=== PATIENT | female | born 1990 | race American Indian/Alaskan Native ===

== ENCOUNTER 2018-01-10 03:32 | Day surgery (SDC) | payer MEDICAID ==
[2018-01-10] MEDS ORDERED: Sodium Chloride 0.9% 1,000 ML IV ONE ×2 (03:44→04:27)
[2018-01-10] MEDS ORDERED: Morphine 2 MG/ML Syringe IVPUSH ONE (03:49)
[2018-01-10] MEDS ORDERED: Ondansetron 4 MG/2 ML SDV IV ONE ×3 (03:49→11:20)
[2018-01-10] MEDS ORDERED: Morphine 4 MG/ML Syringe IVPUSH ONE (04:02)
--- NOTE | 2018-01-10 04:05 | EDM.PDOC ---
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 2SAB. Bleeding started 1.5 hours ago. Has been bright red and gush when severe cramp comes. States US done 2 weeks ago in clinic noted just angie sak and was told not a viable . Last meal 7pm, smoker 1/2 ppd. Pelvic Pain Score (Numeric/FACES): 4 - Related Data Allergies Allergy/AdvReac Type Severity Reaction Status Date / Time No Known Allergies Allergy Verified 01/10/18 03:37 Home Meds: Home Meds Pnv No.95/Ferrous Fum/Folic AC [ Multivitamin Tablet] 1 each PO DAILY [History] Past Medical History - Past Health History Medical/Surgical History: Denies Medical/Surgical History Social & Family History - Tobacco Use Smoking Status *Q: Light Tobacco Smoker Years of Tobacco use: 0 Packs/Tins Daily: 0.1 - Alcohol Use Days Per Week of Alcohol Use: 0 - Recreational Drug Use Recreational Drug Use: No - Living Situation & Occupation Living situation: Reports: with Significant Other Occupation: Employed ED ROS GENERAL - Review of Systems Review Of Systems: ROS reveals no pertinent complaints other than HPI. ED EXAM - Physical Exam Exam: See Below Exam Limited By: No Limitations General Appearance: Alert, Anxious, Mild Distress, Obese Eye Exam: Bilateral Eye: EOMI Ears: Normal External Exam Nose: Normal Inspection Throat/Mouth: Normal Inspection, Normal Lips, Normal Voice Head: Atraumatic, Normocephalic Neck: Full Range of Motion Respiratory/Chest: No Respiratory Distress, Lungs Clear Cardiovascular: Normal Peripheral Pulses, Regular Rate, Rhythm, Tachycardia GI/Abdominal Exam: Normal Bowel Sounds, Soft, Tender (suprapubic) (Female) Exam: Vaginal Bleeding Back Exam: Full Range of Motion Extremities: Normal Inspection, Normal Range of Motion Neurological: Alert, Oriented, Normal Cognition Psychiatric: Anxious, Tearful Skin Exam: Warm, Dry, Intact, Pallor Course - Vital Signs Last Recorded V/S: Last Vital Signs Temp 97.4 F 03/15/18 03:45 Pulse 65 01/10/18 04:32 Resp 18 01/10/18 04:32 BP 123/76 01/10/18 04:32 Pulse Ox 97 01/10/18 04:32 - Orders/Labs/Meds Orders: Active Orders 24 hr Category Date Time Status Sodium Chloride 0.9% [Normal Saline] 1,000 ml Med 01/10/18 04:27 Active IV .BOLUS Medication Orders Sodium Chloride (Normal Saline) 1,000 mls @ 500 mls/hr IV .BOLUS ONE Stop: 01/10/18 06:26 Last Admin: 01/10/18 04:31 Dose: 500 mls/hr Labs: Laboratory Tests 01/10/18 01/10/18 01/10/18 Range/Units 03:48 03:48 03:48 WBC 14.9 H (5.0-10.0) 10^3/uL RBC 4.57 (4.2-5.4) 10^6/uL Hgb 13.5 D (12.0-16.0) g/dL Hct 39.0 (37.0-47.0) % MCV 85.3 (80-100) fL MCH 29.5 (27.0-34.0) pg MCHC 34.6 (33.0-35.0) g/dL Plt Count 359 (150-450) 10^3/uL Neut % (Auto) 62.6 (42.2-75.2) % Lymph % (Auto) 27.5 (20.5-50.1) % Metcalfe % (Auto) 7.7 (2-8) % Eos % (Auto) 2.0 (1.0-3.0) % Baso % (Auto) 0.2 (0.0-1.0) % PT 9.4 (9.0-12.0) SEC INR 0.9 (0.9-1.2) Sodium 135 (135-145) mmol/L Potassium 3.5 L (3.6-5.0) mmol/L Chloride 104 (101-111) mmol/L Carbon Dioxide 22.0 (21.0-31.0) mmol/L Anion Gap 12.5 BUN 18 (7-18) mg/dL Creatinine 0.8 (0.6-1.3) mg/dL Est Cr Clr Drug Dosing 115.97 mL/min Estimated GFR (MDRD) > 60 BUN/Creatinine Ratio 22.50 Glucose 105 (74-105) mg/dL Calcium 8.9 (8.4-10.2) mg/dl Total Bilirubin 0.5 (0.2-1.0) mg/dL AST 27 (10-42) IU/L ALT 25 (10-60) IU/L Alkaline Phosphatase 57 (42-121) IU/L Total Protein 6.9 (6.7-8.2) g/dl Albumin 3.9 (3.2-5.5) g/dl Globulin 3.0 Albumin/Globulin Ratio 1.30 Blood Type Gel Antibody Screen 01/10/18 Range/Units 03:48 WBC (5.0-10.0) 10^3/uL RBC (4.2-5.4) 10^6/uL Hgb (12.0-16.0) g/dL Hct (37.0-47.0) % MCV (80-100) fL MCH (27.0-34.0) pg MCHC (33.0-35.0) g/dL Plt Count (150-450) 10^3/uL Neut % (Auto) (42.2-75.2) % Lymph % (Auto) (20.5-50.1) % Metcalfe % (Auto) (2-8) % Eos % (Auto) (1.0-3.0) % Baso % (Auto) (0.0-1.0) % PT (9.0-12.0) SEC INR (0.9-1.2) Sodium (135-145) mmol/L Potassium (3.6-5.0) mmol/L Chloride (101-111) mmol/L Carbon Dioxide (21.0-31.0) mmol/L Anion Gap BUN (7-18) mg/dL Creatinine (0.6-1.3) mg/dL Est Cr Clr Drug Dosing mL/min Estimated GFR (MDRD) BUN/Creatinine Ratio Glucose (74-105) mg/dL Calcium (8.4-10.2) mg/dl Total Bilirubin (0.2-1.0) mg/dL AST (10-42) IU/L ALT (10-60) IU/L Alkaline Phosphatase (42-121) IU/L Total Protein (6.7-8.2) g/dl Albumin (3.2-5.5) g/dl Globulin Albumin/Globulin Ratio Blood Type O POSITIVE Gel Antibody Screen Negative Meds: Medications Generic Name Dose Route Start Last Admin Trade Name Fermín PRN Reason Stop Dose Admin Sodium Chloride 1,000 mls @ 500 mls/hr 01/10/18 04:27 01/10/18 04:31 Normal Saline IV 01/10/18 06:26 500 mls/hr .BOLUS ONE Administration Discontinued Medications Generic Name Dose Route Start Last Admin Trade Name Fermín PRN Reason Stop Dose Admin Sodium Chloride 1,000 mls @ 999 mls/hr 01/10/18 03:44 01/10/18 03:52 Normal Saline IV 01/10/18 04:44 999 mls/hr .BOLUS ONE Administration Morphine Sulfate 2 mg 01/10/18 03:49 01/10/18 03:55 Morphine IVPUSH 01/10/18 03:50 2 mg ONETIME ONE Administration Morphine Sulfate 4 mg 01/10/18 04:02 01/10/18 04:07 Morphine IVPUSH 01/10/18 04:03 4 mg ONETIME ONE Administration Ondansetron HCl 4 mg 01/10/18 03:49 01/10/18 03:52 Zofran IV 01/10/18 03:50 4 mg ONETIME ONE Administration - Re-Assessments/Exams Free Text/Narrative Re-Assessment/Exam: 01/10/18 04:09 Dr. Estrada notified of heavy vaginal bleeding. Plan for D&C. 01/10/18 04:18 Nauseated, No vomiting. Continues with heavy vaginal bright red bleeding 01/10/18 04:48 Chux changed, large clot and active flow with cramping Dr Russell here to see patient. Consent for D&C and consent for blood signed by patient. VSS. Departure - Departure Time of Disposition: 04:50 Disposition: Refer to Observation Condition: Fair Clinical Impression: Incomplete - Discharge Information Forms: ED Department Discharge - My Orders Last 24 Hours: My Active Orders 01/10/18 04:27 Sodium Chloride 0.9% [Normal Saline] 1,000 ml IV .BOLUS - Assessment/Plan Last 24 Hours: My Active Orders 01/10/18 04:27 Sodium Chloride 0.9% [Normal Saline] 1,000 ml IV .BOLUS
[2018-01-10 04:16] LABS: ANION GAP 12.5; CHLORIDE,CL 104 mmol/L (101-111); SODIUM,NA 135 mmol/L (135-145)
[2018-01-10] MEDS ORDERED: fentaNYL 100 MCG/2 ML SDV IV ONE (04:48)
[2018-01-10] MEDS ORDERED: Lactated Ringers 1,000 ML IV ONE (04:48)
[2018-01-10] MEDS ORDERED: Propofol 200 MG/20 ML SDV IV ONE (04:48)
[2018-01-10] MEDS ORDERED: Midazolam 1 MG/ML 2 ML SDV IV ONE (04:48)
[2018-01-10] MEDS ORDERED: Ketorolac 30 MG/ML SDV IVPUSH ONE ×2 (04:48→11:21)
[2018-01-10] MEDS ORDERED: Dexamethasone 4 MG/ML SDV IV ONE (04:48)
[2018-01-10] MEDS ORDERED: Lidocaine 2% 20 ML MDV INJECT ONE (04:48)
[2018-01-10] MEDS ORDERED: Oxytocin/Normal Saline 30 UNIT/500 ML BAG ONE (04:59)
[2018-01-10] MEDS ORDERED: Oxytocin/Normal Saline 30 UNIT/500 ML BAG IV SCH (05:15)
[2018-01-10] MEDS ORDERED: ceFAZolin 2 GM in Premix Bag 1 BAG IV ONE (06:46)
--- NOTE | 2018-01-10 08:07 | OR ---
DATE: 01/10/2018 PREOPERATIVE DISCUSSION: The patient has been followed by me recently in the clinic, and please see our recent [facility] records from approximately 10 to 12 days ago. The patient does have a history of missed or blighted ovum at approximately 8 weeks' gestation. She does come to the emergency room, and I am called at approximately 4:00 a.m. today because of her very heavy vaginal bleeding with large clots and abdominal cramping. The PA in the emergency room has thoroughly discussed her with me. Her pulse rate is 110. CBC was pending. Blood pressure was 138/88 range. Because of the heavy vaginal bleeding, it was decided that we would proceed with D and C in the near future, and I have come over and evaluated the patient in the emergency room. We did thoroughly discussed the goals and reasons for the D and C, and we also thoroughly discussed the possibilities of complications and adverse outcomes any time we go to the operating room. All of her questions have been thoroughly answered. We also discussed with her the other alternatives of waiting further and/or using Cytotec, which I do not recommend doing of course. As mentioned above, all of their questions were answered. The patient does give consent to the D and C with suction curettage procedure. PREOPERATIVE DIAGNOSIS: Missed or blighted ovum with heavy vaginal bleeding, clotting, and cramping. OPERATION PERFORMED: D and C with suction curettage. POSTOPERATIVE DIAGNOSIS: Missed or blighted ovum with heavy vaginal bleeding, clotting, and cramping. Pathology report pending. ANESTHESIA: General. ESTIMATED BLOOD LOSS: 250 mL. COMPLICATIONS: None. DESCRIPTION OF PROCEDURE: After the induction of general anesthesia, the patient was routinely prepped and draped in the dorsal lithotomy position. The pelvis was carefully inspected, and a large amount of blood was in the vaginal vault. The cervix was actually fully dilated with a large clot and large piece of products of conception tissue in the endocervical canal area. This was removed with the sponge forceps and submitted as part of the specimen of course. Now, the uterus was carefully sounded to approximately 10 cm. The uterus was in the mid to slightly anterior position. The cervix did not need further dilating as mentioned above. Now, the medium size sharp curette was carefully introduced, and the uterine cavity was very carefully and very systematically curetted paying careful attention to all aspects of the organ. A moderate amount of tissue was obtained, and all of this was submitted to the pathologist also. Now, because of the amount of tissue and because of her amount of bleeding, we did also proceed with suction curettage using a 10 mm straight suction curette. This was done very carefully and very thoroughly, and a slight amount of further tissue and a moderate amount of further blood was obtained of course. This tissue will be submitted to the pathologist also. Now, the uterine cavity was very gently and very carefully curetted 1 last time, and also, we were careful to not over curette this delicate organ. No further tissue was obtained. IV intraoperative Pitocin was now begun, and also, it should be mentioned that the patient did have prophylactic IV Ancef 2 g given preoperatively. The uterine bleeding did slow down and then stopped, and I also did vigorously massaged the uterine cavity. The pelvic exam had been done just before beginning the procedure of course, and at that time, the uterus felt about 8 to 9-week size and in the mid position, and there were no adnexal masses of course. All of the instruments were now removed from the D and C procedure. The sponge and instrument count were reported as correct. There was no further bleeding from the cervix or the vaginal cavity. Estimated blood loss was approximately 250 mL. The patient has remained stable at all times in the operating room, and she goes to recovery room in a very stable condition. We will also exchange cell phone numbers again as we have done before with this patient approximately 10 days ago, and she will be instructed to keep in close contact with me in the postoperative period if any questions or problems whatsoever. Those discharge instructions will be given to her of course at discharge. As mentioned above, the patient goes to recovery room now in a very stable condition. [facility] /[id number]
== END 2018-01-10 14:00 | disposition home or self-care (01) ==
LOC: DL.ED 03:32 → DL.SDS 04:47
PROVIDERS: ATTEND Obstetrics & Gynecology
DX: O02.1 Missed abortion (principal); F17.210 Nicotine dependence, cigarettes, uncomplicated; Z91.09 Other allergy status, other than to drugs and biological substances; Z79.899 Other long term (current) drug therapy
CPT/HCPCS: 36415; 59820; 80053; 85025; 85610; 86850; 86900; 86901; 96361; 96374; 96375; 99285; J0690; J1100; J1885; J2250; J2270; J2405; J2590; J2704; J3010; J7030; J7120

== ENCOUNTER 2019-02-16 01:06 | Inpatient (IN) | payer MEDICAID ==
[2019-02-16] MEDS: Lactated Ringers 1,000 ML IV SCH ×5 (01:26→21:50)
[2019-02-16] MEDS ORDERED: Citric Acid/Sodium Citrate Solution 30 ML Cup PO ONE (02:08)
[2019-02-16] MEDS ORDERED: Oxytocin/Normal Saline 60 UNIT/1,000 ML BAG ONE (02:12)
[2019-02-16] MEDS ORDERED: Oxytocin/Normal Saline 30 UNIT/500 ML BAG IV SCH (02:45)
[2019-02-16] MEDS ORDERED: Bupivacaine 0.5% 30 ML SDV ONE (04:08)
[2019-02-16] MEDS ORDERED: Acetaminophen 325 MG Tab PO PRN (05:20)
[2019-02-16] MEDS ORDERED: Misoprostol 400 MCG (4 X 100 MCG TAB) RECTAL PRN (05:20)
[2019-02-16] MEDS ORDERED: Naloxone 2 MG/2 ML Syringe IVPUSH PRN (05:20)
[2019-02-16] MEDS ORDERED: Hydrocortisone 2.5% Crm 30 GM Tube TOP PRN (05:20)
[2019-02-16] MEDS ORDERED: Sodium Chloride 0.9% 10 ML Syringe FLUSH PRN (05:20)
[2019-02-16] MEDS ORDERED: Carboprost Tromethamine 250 MCG/1 ML Amp IM ONE (05:20)
[2019-02-16] MEDS ORDERED: Aluminum Hydroxide/Magnesium Hydroxide/Simethicone Susp 30 ML Cup PO PRN (05:20)
[2019-02-16] MEDS ORDERED: Methylergonovine 0.2 MG/1 ML Amp IM PRN (05:20)
[2019-02-16] MEDS ORDERED: Zolpidem 5 MG Tab PO PRN (05:20)
[2019-02-16] MEDS ORDERED: diphenhydrAMINE 50 MG/ML SDV IM PRN (05:20)
[2019-02-16] MEDS ORDERED: Ondansetron 4 MG/2 ML SDV IV PRN (05:20)
[2019-02-16] MEDS ORDERED: Measles, Mumps & Rubella Vaccine 0.5 ML SDV SUBCUT ONE (05:20)
[2019-02-16] MEDS ORDERED: Tranexamic Acid 1,000 MG in Sodium Chloride 0.9% 100 ML IV PRN (05:20)
[2019-02-16] MEDS ORDERED: ePHEDrine 50 MG/ML SDV IVPUSH PRN (05:20)
[2019-02-16] MEDS: Docusate Sodium 100 MG Cap PO PRN (08:26)
[2019-02-16] MEDS: Prenatal Multivitamin with Calcium/Folic Acid/Iron Tab PO SCH (08:26)
[2019-02-16] MEDS: Simethicone 80 MG Tab.Chew PO PRN ×2 (08:26→12:29)
[2019-02-16] MEDS: Ketorolac 30 MG/ML SDV IVPUSH SCH ×3 (09:32→21:47)
--- NOTE | 2019-02-16 12:23 | OR ---
DATE: 02/16/2019 PREOPERATIVE DIAGNOSES: 4, para 0 patient at 38 weeks 2 days' gestation with breech presentation and active labor. The patient is also group B Streptococcus positive. OPERATIONS PERFORMED: Primary section, low transverse. POSTOPERATIVE DIAGNOSIS: Same as above. ANESTHESIA: Spinal. COMPLICATIONS: None. ESTIMATED BLOOD LOSS: 600 mL. DESCRIPTION: After the induction of satisfactory spinal or regional anesthesia and after the abdomen had been routinely prepped and draped in the usual fashion, a Pfannenstiel incision was made in the skin. The patient did receive 3 g of Ancef IV preprocedure. This incision was now carried down through the deeper layers, and now the rectus fascia was incised and extended bilaterally. The peritoneum was identified in the midline and carefully incised. Now, the uterus was inspected, and the lower uterine segment was exposed with the bladder blade. Using the Metzenbaum scissors, the bladder flap was developed with the use of sharp and blunt dissection. Now, a low transverse uterine incision was made and extended bilaterally with the bandage scissors. There had been meconium-stained fluid noted earlier when the patient came into the hospital of course. The baby was in a kendal breech presentation, and he was now very carefully and gently extracted from the uterine incision as a kendal breech presentation. The scores were 9 and 9, and the baby's weight was later reported as 6 pounds 14 ounces. A sample of cord blood was obtained. The placenta was manually delivered from the uterine cavity, and the uterine cavity was carefully wiped clean with a moist laparotomy sponge. The uterus was carefully exteriorized, and because of her extra corpulence, it was somewhat difficult to get good exposure even with the uterus exteriorized. The first layer of the uterus was closed with 0 Vicryl continuous interlocking sutures. A second Lembert imbricating suture also of 0 Vicryl was now placed on top of this. A small bleeder on the right side of the incision was now ligated with an interrupted suture. Also, there had been a large amount of adipose tissue and a large amount of omental tissue that previously was obstructing our view, and I did gently packed this off with a moist laparotomy sponge on the right side. Once again, it was somewhat difficult to get good retraction and good exposure because of the body habitus. The pelvic gutters were copiously irrigated with warm normal saline on each side and carefully suctioned dry. The tubes and ovaries had a normal appearance bilaterally as did the uterus. The uterus was carefully placed back into the pelvic cavity. There was some initial difficulty for a short period of time locating the laparotomy sponge that I had placed earlier, and then it was found in the right pelvic gutter area. Once again, a lot of adipose tissue and redundant omentum was often times obstructing view. The pelvis was again reinspected 2 more times, and the uterine incision was hemostatic. Now, the rectus fascia was closed with 0 Vicryl continuous suturing using a separate strand for the right and left sides of the incision respectively. The subcutaneous tissues were now irrigated and suctioned dry, and then because of the depth of the subcutaneous tissues, this layer was closed with 3-0 plain gut continuous suturing. It should be mentioned that earlier the parietal peritoneum and the bladder flap peritoneum nicely reapproximated on its own without suturing. The subcutaneous tissues were now infiltrated with 0.5% Marcaine for extra analgesic support. Babita were now applied to the skin. The needle, sponge, and instrument count was definitely reported as correct. Kwok catheter was draining clear urine at all times. The patient has tolerated the procedure well and went to the recovery room in good condition. [facility] /[id number]
--- NOTE | 2019-02-17 00:44 | PN ---
DATE: 02/16/2019 SUBJECTIVE: The patient is seen earlier this morning on rounds, she did have a fairly decent night's sleep or rest, and does have good pain control. She denies any complaints. She has had liquids earlier this morning as well. Her baby continues to do very well in the nursery. OBJECTIVE: Temperature was 98 degrees, 1 of her systolic blood pressures were in the 142 to 144 range and then others have been below that. Incidentally, the patient denies any headaches. Her uterine or incisional dressing is dry. The lochia flow is within normal limits. Her extremities revealed normal reflexic DTRs bilaterally and no ankle clonus. She does have a trace of edema and negative Homans sign. She does have good urinary output. ASSESSMENT: Stable postoperative course. PLAN: We will advance her diet and we have emphasized the importance of progressive ambulation to her and we have discussed this with her as well as with the nurses. We do encourage oral hydration as well. All of her questions have been answered. Please see our admission history and physical and operative report. [facility] /[id number]
[2019-02-17] MEDS: Acetaminophen/oxyCODONE 325-5 MG Tab PO PRN ×4 (04:33→21:55)
[2019-02-17] MEDS: Ibuprofen 800 MG Tab PO PRN ×2 (08:28→21:56)
[2019-02-17] MEDS: Prenatal Multivitamin with Calcium/Folic Acid/Iron Tab PO SCH (08:28)
[2019-02-17] MEDS: Docusate Sodium 100 MG Cap PO PRN ×2 (08:28→21:57)
--- NOTE | 2019-02-17 08:43 | HP ---
HISTORY OF PRESENT ILLNESS: This patient is a 28-year-old, 4, para [address] Diggs. She is currently at 38 weeks 2 days gestation with a working JESE of 02/28/2019. She did experience spontaneous rupture of membranes at about 12:30 this morning on 02/16/2019. She is known to be breech presentation by history and indeed ultrasound does confirm breech presentation at the present time. She is in active labor and is 5+ cm dilated. heart tones are category 1. She is positive for group B strep. It appears she denies other complications that she is aware of. She has been experiencing good movement. Her Epic records are reviewed. PAST MEDICAL HISTORY: She denies any knowledge of heart, lung, liver, or kidney disease. ALLERGIES: None known. MEDICATIONS: At present, ranitidine as well as vitamins daily. PREVIOUS SURGERY: None. FAMILY HISTORY: Noncontributory including no known anesthesia problems in other family members. SOCIAL HISTORY: She lives at [place]. Her , Niranjan, is with her today. She denies street drug usage and she is a nonsmoker. PHYSICAL EXAMINATION: Vital Signs: Admission vital signs are within normal limits. HEENT: The sclerae are nonicteric. Lungs: Clear to A. Heart: Regular rhythm without murmur. Abdomen: Gravid and heart tones are category 1. She is having active contractions about every 2-1/2 to 3 minutes. There is negative CVA tenderness bilaterally. Repeat vaginal exam as mentioned above, reveals her to be flat 5+ cm dilated with what appears to possibly be a kendal breech at about 0 station. Extremities: Her extremities reveal trace ankle edema bilaterally. IMPRESSION: A 38 weeks 2 days' gestation. The patient has ruptured membranes with breech presentation and is in active labor. She also is GBS positive. We will discuss her with Anesthesia as well as the pediatric crew. We did highly recommend a course proceeding with primary section. We did thoroughly discuss with her the slight possibility of complications and adverse outcomes from this operative procedure. She does give consent to blood transfusion if necessary. Please see our other preoperative orders. We will proceed with primary section, low transverse. [facility] /[id number]
[2019-02-17] MEDS ORDERED: Sodium Bicarbonate 4.2% 2.5 MEQ/5 ML SDV ONE (11:29)
[2019-02-17] MEDS ORDERED: Lidocaine 2% 20 ML MDV ONE (11:29)
[2019-02-17] MEDS ORDERED: Ondansetron 4 MG/2 ML SDV IV ONE (11:29)
[2019-02-17] MEDS ORDERED: Oxytocin/Normal Saline 30 UNIT/500 ML BAG IV ONE (11:29)
[2019-02-17] MEDS ORDERED: Lactated Ringers 1,000 ML IV ONE (11:29)
[2019-02-17] MEDS ORDERED: ePHEDrine 50 MG/ML SDV IV ONE (11:29)
[2019-02-17] MEDS ORDERED: Ketorolac 30 MG/ML SDV IVPUSH ONE (11:29)
[2019-02-17] MEDS ORDERED: Bupivacaine 0.5% 30 ML SDV ONE (11:29)
[2019-02-17] MEDS ORDERED: Morphine PF 1 MG/ML Amp ONE (11:29)
[2019-02-17] MEDS ORDERED: Dexamethasone 4 MG/ML SDV IV ONE (11:29)
--- NOTE | 2019-02-17 15:58 | PCM.SN ---
- Free Text/Narrative Note: Postoperative Day #1 Progress Note S: The patient reports that she is doing well overall. She is ambulating well. Her pain is well controlled and reports that her bleeding is minimal. She is tolerating her diet without issue. She is passing flatus. She is with some difficulty with latching. No nausea, vomiting, diarrhea, shortness of breath, or other complaints. O: Physical exam: Vitals stable Gen: No distress CV: Well-perfused, 2+ distal pulses Resp: Non-Labored, symmetrical chest expansion Abd: Incision is clean, dry, and intact. Fundus is firm and below umbilicus. Ext: Moves all extremities. Assessment: Sofia is a 28 year old G3 now P1 status post primary for breech presentation (POD#1) who is doing well. Plan: - Encourage ambulation. - Dressing was removed; will allow to shower. - Advance diet - Routine Nursing. Shirin Diggs MD
[2019-02-17] MEDS: Simethicone 80 MG Tab.Chew PO PRN (21:57)
[2019-02-18] MEDS: Acetaminophen/oxyCODONE 325-5 MG Tab PO PRN ×4 (03:40→18:12)
[2019-02-18] MEDS: Simethicone 80 MG Tab.Chew PO PRN ×2 (08:58→16:58)
[2019-02-18] MEDS: Prenatal Multivitamin with Calcium/Folic Acid/Iron Tab PO SCH (08:59)
[2019-02-18] MEDS: Docusate Sodium 100 MG Cap PO PRN ×2 (08:59→21:09)
--- NOTE | 2019-02-18 10:37 | PCM.SN ---
- Free Text/Narrative Note: Postoperative Day #2 Progress Note S: The patient reports she is doing well. Ambulating without assistance, tolerating PO intake. She is passing flatus. Pain and bleeding are minimal. No nausea, vomiting, diarrhea, shortness of breath, or other complaints. O: Physical exam: Vitals reviewed and stable Gen: No distress CV: Well-perfused, 2+ distal pulses Resp: Non-labored, symmetrical chest expansion Abd: Incision is clean, dry, and intact. Fundus is firm and below umbilicus. Ext: Moves all extremities. Labs: reviewed Assessment: Sofia is a 28 year old G3 now P1 status post primary for breech presentation (POD#2) who is doing well. Plan: - Continue routine nursing for now. - Encourage ambulation. - Likely discharge home tomorrow. Shirin Diggs MD
[2019-02-18] MEDS: Ibuprofen 800 MG Tab PO PRN (21:09)
[2019-02-19] MEDS: Acetaminophen/oxyCODONE 325-5 MG Tab PO PRN ×2 (00:47→07:31)
[2019-02-19] MEDS: Simethicone 80 MG Tab.Chew PO PRN (00:47)
--- NOTE | 2019-02-19 08:44 | PCM.SN ---
- Free Text/Narrative Note: Discharge Summary Admit date: 02/16/19 Discharge date: 02/19/19 Delivering Physician: Dr. Estrada Discharging Physician: Dr. Diggs Admission Diagnoses: at 38w2d SROM at term Breech presentation Summary of Hospital Course: Sofia is a 28 year old G3 now P1 at 38w2d who presented to labor and delivery on 02/16/19 for SROM and was found to still be in breech presentation. She underwent primary low transverse section and delivered a viable male weighing 3110 grams. The patient had an unremarkable postoperative course. By postoperative day 3, the patient was doing well; ambulating, voiding , and tolerating general diet. Her pain was well controlled with oral pain medications, and was she was discharged to home. Discharge Exam: Vitals stable Gen: No distress CV: Well-perfused, 2+ distal pulses Resp: Non-Labored, symmetrical chest expansion Abd: Incision is clean, dry, and intact. Fundus is firm and below umbilicus. Ext: Moves all extremities. Discharge (or Final) Diagnoses: 1. Intrauterine at 38w2d 2. Primary low transverse section 3. Breech presentation Discharge Details: Admission Condition: good Discharged Condition: good Disposition: Home Discharge Medications: Percocet Diet: regular diet Activity: no heavy lifting for 2 weeks, pelvic rest for 6 weeks. Follow-up with Dr Diggs in 3 days for incision check and staple removal, then again in 6-8 weeks for visit. Shirin Diggs MD
[2019-02-19] MEDS: Prenatal Multivitamin with Calcium/Folic Acid/Iron Tab PO SCH (09:20)
[2019-02-19] MEDS: Docusate Sodium 100 MG Cap PO PRN (09:20)
== END 2019-02-19 12:50 | disposition home or self-care (01) | DRG 788 ==
LOC: DL.OBCHECK 01:06 → DL.MS 02:18 → OBSVTOIN 03:17
PROVIDERS: ADMIT Obstetrics & Gynecology; ATTEND Obstetrics & Gynecology
PROC: 10D00Z1 Extraction of Products of Conception, Low, Open Approach (ICD-10-PCS; principal; 2019-02-16)
DX: O32.1XX0 Maternal care for breech presentation, not applicable or unspecified (principal); O99.824 Streptococcus B carrier state complicating childbirth; Z3A.38 38 weeks gestation of pregnancy; Z37.0 Single live birth; Z23 Encounter for immunization
CPT/HCPCS: 36415; 76815; 83986; 85027; 86850; 86900; 86901; 90707; A9270-GY; J0690; J1100; J1885; J2001; J2274; J2405; J2590; J3490; J7120

== ENCOUNTER 2020-03-18 00:58 | Emergency (ER) | payer MEDICAID ==
[2020-03-18 02:31] LABS: ANION GAP 13.5 mEq/L (7-13); CHLORIDE,CL 102 mmol/L (98-107); SODIUM,NA 138 mmol/L (136-145)
--- NOTE | 2020-03-18 03:21 | EDM.PDOC ---
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 CRAMPING AND BLEEDING Time Seen by Provider: 03/18/20 01:50 Source of Information: Reports: Patient, RN History Limitations: Reports: No Limitations - History of Present Illness INITIAL COMMENTS - FREE TEXT/NARRATIVE: ED with report of cramping since afternoon and light sooting dark blood for one week and around 10pm started with bright blood with wiping. notes only around dime size area on liner all day long. Estimates 5-6 weeks . No fever or chills. No odor or other discharge. . Abdomen Pain Score (Numeric/FACES): 4 - Related Data Allergies Allergy/AdvReac Type Severity Reaction Status Date / Time adhesive tape Allergy Rash Verified 03/18/20 23:09 Home Meds: Home Meds Pnv No.95/Ferrous Fum/Folic AC [ Multivitamin Tablet] 1 each PO DAILY [History] Past Medical History - Past Health History Medical/Surgical History: Denies Medical/Surgical History HEENT History: Reports: Impaired Vision Cardiovascular History: Reports: None Respiratory History: Reports: None Gastrointestinal History: Reports: None Genitourinary History: Reports: Other (See Below) Other Genitourinary History: abnormal pap with Neg HPV 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: , 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 Musculoskeletal History: Reports: Back Pain, Chronic Neurological History: Reports: None Psychiatric History: Reports: None Endocrine/Metabolic History: Reports: Diabetes, Gestational, Other (See Below) Other Endocrine/Metabolic History: diet controlled gestational diabetes Hematologic History: Reports: None Immunologic History: Reports: None Oncologic (Cancer) History: Reports: None Dermatologic History: Reports: None - Infectious Disease History Infectious Disease History: Reports: Chicken Pox Social & Family History - Family History Family Medical History: Noncontributory - Tobacco Use Smoking Status *Q: Unknown Ever Smoked - Caffeine Use Caffeine Use: Reports: None - Recreational Drug Use Recreational Drug Use: Yes Recreational Drug Type: Reports: Marijuana/Hashish Recreational Drug Use Frequency: Socially - Living Situation & Occupation Living situation: Reports: with Significant Other Occupation: Employed ED ROS GENERAL - Review of Systems Review Of Systems: Comprehensive ROS is negative, except as noted in HPI. ED EXAM - Physical Exam Exam: See Below Exam Limited By: No Limitations General Appearance: Alert, No Apparent Distress, Anxious Eye Exam: Bilateral Eye: EOMI Ears: Normal External Exam, Hearing Loss Nose: Normal Inspection Throat/Mouth: Normal Inspection, Normal Oropharynx Head: Atraumatic, Normocephalic Respiratory/Chest: No Respiratory Distress, Lungs Clear Cardiovascular: Normal Peripheral Pulses, Regular Rate, Rhythm GI/Abdominal Exam: Normal Bowel Sounds, Soft, Tender (mild low suprapubic) (Female) Exam: Other (scant dark brown vaginal vault) Extremities: Normal Inspection Neurological: Alert, Oriented Skin Exam: Warm, Dry, Intact, Normal Color Course - Vital Signs Last Recorded V/S: Last Vital Signs Temp 98.4 F 03/18/20 01:43 Pulse 68 03/18/20 01:43 Resp 19 03/18/20 01:43 BP 146/88 H 03/18/20 01:43 Pulse Ox 100 03/18/20 01:43 - Orders/Labs/Meds Labs: Laboratory Tests 03/18/20 03/18/20 03/18/20 Range/Units 01:58 02:05 02:05 WBC 14.4 H (5.0-10.0) 10^3/uL RBC 5.43 H (4.2-5.4) 10^6/uL Hgb 15.2 D (12.0-16.0) g/dL Hct 43.8 (37.0-47.0) % MCV 80.7 D (80-100) fL MCH 28.0 (27.0-34.0) pg MCHC 34.7 (33.0-35.0) g/dL Plt Count 351 (150-450) 10^3/uL Neut % (Auto) 68.4 (42.2-75.2) % Lymph % (Auto) 22.6 (20.5-50.1) % [place] % (Auto) 7.4 (2-8) % Eos % (Auto) 1.5 (1.0-3.0) % Baso % (Auto) 0.1 (0.0-1.0) % Sodium 138 (136-145) mmol/L Potassium 3.5 (3.5-5.1) mmol/L Chloride 102 (98-107) mmol/L Carbon Dioxide 26 (21-32) mmol/L Anion Gap 13.5 H (7-13) mEq/L BUN 15 (7-18) mg/dL Creatinine 0.93 (0.55-1.02) mg/dL Est Cr Clr Drug Dosing 97.96 mL/min Estimated GFR (MDRD) > 60 BUN/Creatinine Ratio 16.1 (No establ ref range) Glucose 94 (74-99) mg/dL Calcium 9.1 (8.5-10.1) mg/dL Total Bilirubin 0.2 (0.2-1.0) mg/dL AST 25 (15-37) U/L ALT 55 (14-59) U/L Alkaline Phosphatase 127 H (46-116) U/L Total Protein 7.3 (6.4-8.2) g/dL Albumin 3.5 (3.4-5.0) g/dL Globulin 3.8 Albumin/Globulin Ratio 0.9 HCG, Qual Positive HCG, Quant (0-6) mIU/mL Urine Color Yellow (YELLOW) Urine Appearance Slightly cloudy (CLEAR) Urine pH 6.5 (5.0-9.0) Ur Specific [place] 1.025 (1.005-1.030) Urine Protein Negative (NEGATIVE) Urine Glucose (UA) Negative (NEGATIVE) Urine Ketones Negative (NEGATIVE) Urine Occult Blood Moderate H (NEGATIVE) Urine Nitrite Negative (NEGATIVE) Urine Bilirubin Negative (NEGATIVE) Urine Urobilinogen 0.2 (0.2-1.0) mg/dL Ur Leukocyte Esterase Negative (NEGATIVE) Urine RBC 10-20 H /HPF Urine WBC 0-5 (0-5/HPF) /HPF Ur Epithelial Cells Few (NOT SEEN) /HPF Amorphous Sediment Few (NOT SEEN) /HPF Urine Bacteria Rare (0-FEW/HPF) /HPF //20 Range/Units 02:05 WBC (5.0-10.0) 10^3/uL RBC (4.2-5.4) 10^6/uL Hgb (12.0-16.0) g/dL Hct (37.0-47.0) % MCV (80-100) fL MCH (27.0-34.0) pg MCHC (33.0-35.0) g/dL Plt Count (150-450) 10^3/uL Neut % (Auto) (42.2-75.2) % Lymph % (Auto) (20.5-50.1) % [place] % (Auto) (2-8) % Eos % (Auto) (1.0-3.0) % Baso % (Auto) (0.0-1.0) % Sodium (136-145) mmol/L Potassium (3.5-5.1) mmol/L Chloride (98-107) mmol/L Carbon Dioxide (21-32) mmol/L Anion Gap (7-13) mEq/L BUN (7-18) mg/dL Creatinine (0.55-1.02) mg/dL Est Cr Clr Drug Dosing mL/min Estimated GFR (MDRD) BUN/Creatinine Ratio (No establ ref range) Glucose (74-99) mg/dL Calcium (8.5-10.1) mg/dL Total Bilirubin (0.2-1.0) mg/dL AST (15-37) U/L ALT (14-59) U/L Alkaline Phosphatase (46-116) U/L Total Protein (6.4-8.2) g/dL Albumin (3.4-5.0) g/dL Globulin Albumin/Globulin Ratio HCG, Qual HCG, Quant 4128 H (0-6) mIU/mL Urine Color (YELLOW) Urine Appearance (CLEAR) Urine pH (5.0-9.0) Ur Specific [place] (1.005-1.030) Urine Protein (NEGATIVE) Urine Glucose (UA) (NEGATIVE) Urine Ketones (NEGATIVE) Urine Occult Blood (NEGATIVE) Urine Nitrite (NEGATIVE) Urine Bilirubin (NEGATIVE) Urine Urobilinogen (0.2-1.0) mg/dL Ur Leukocyte Esterase (NEGATIVE) Urine RBC /HPF Urine WBC (0-5/HPF) /HPF Ur Epithelial Cells (NOT SEEN) /HPF Amorphous Sediment (NOT SEEN) /HPF Urine Bacteria (0-FEW/HPF) /HPF Departure - Departure Time of Disposition: 03:13 Disposition: Home, Self-Care 01 Condition: Good Clinical Impression: Threatened - Discharge Information *PRESCRIPTION DRUG MONITORING PROGRAM REVIEWED*: No *COPY OF PRESCRIPTION DRUG MONITORING REPORT IN PATIENT LESLIE: No Instructions: Threatened Miscarriage, [id number] Referrals: Yvonne Scott MD [Primary Care Provider] - Forms: ED Department Discharge Additional Instructions: Rest push fluids follow up with OB Urgent return severe bleeding, or lower abdominal pain Sepsis Event Note - Evaluation Sepsis Screening Result: No Definite Risk - Focused Exam Date Exam was Performed: 03/23/20 Time Exam was Performed: 05:54
== END 2020-03-18 03:24 | disposition home or self-care (01) ==
LOC: DL.ED 00:58
DX: O20.0 Threatened abortion (principal); Z3A.01 Less than 8 weeks gestation of pregnancy; Z91.048 Other nonmedicinal substance allergy status
CPT/HCPCS: 36415; 80053; 81001; 84702; 84703; 85025; 99284

== ENCOUNTER 2020-03-18 22:55 | Emergency (ER) | payer MEDICAID ==
[2020-03-18] MEDS ORDERED: oxyCODONE 5 MG Tab PO ONE (22:56)
--- NOTE | 2020-03-18 23:29 | EDM.PDOC ---
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 tonight with more bleeding and clots. case discussed with [facility] who will come to evaluate pt. Lower Abdominal Pain Score (Numeric/FACES): 7 - Related Data Allergies Allergy/AdvReac Type Severity Reaction Status Date / Time adhesive tape Allergy Rash Verified 03/18/20 23:09 Home Meds: Home Meds Pnv No.95/Ferrous Fum/Folic AC [ Multivitamin Tablet] 1 each PO DAILY [History] Past Medical History - Past Health History Medical/Surgical History: Denies Medical/Surgical History HEENT History: Reports: Impaired Vision Cardiovascular History: Reports: None Respiratory History: Reports: None Gastrointestinal History: Reports: None Genitourinary History: Reports: Other (See Below) Other Genitourinary History: abnormal pap with Neg HPV 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: , 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 Musculoskeletal History: Reports: Back Pain, Chronic Neurological History: Reports: None Psychiatric History: Reports: None Endocrine/Metabolic History: Reports: Other (See Below) Other Endocrine/Metabolic History: hx of diet controlled gestational diabetes with 1st Hematologic History: Reports: None Immunologic History: Reports: None Oncologic (Cancer) History: Reports: None Dermatologic History: Reports: None - Infectious Disease History Infectious Disease History: Reports: Chicken Pox - Past Surgical History Female Surgical History: Reports: Section, D&C Social & Family History - Family History Family Medical History: Noncontributory - Tobacco Use Smoking Status *Q: Never Smoker Second Hand Smoke Exposure: No - Caffeine Use Caffeine Use: Reports: Soda - Recreational Drug Use Recreational Drug Use: No - Living Situation & Occupation Living situation: Reports: with Significant Other Occupation: Employed ED ROS GENERAL - Review of Systems Review Of Systems: Comprehensive ROS is negative, except as noted in HPI. ED EXAM - Physical Exam Exam: See Below Exam Limited By: No Limitations General Appearance: Alert, WD/WN, Mild Distress, Other (tearful). No: Active Emesis Ears: Hearing Grossly Normal Throat/Mouth: Normal Voice, No Airway Compromise Head: Atraumatic Neck: Non-Tender, Full Range of Motion Respiratory/Chest: No Respiratory Distress Cardiovascular: Regular Rate, Rhythm GI/Abdominal Exam: Tender, Other (low abd region). No: Distended, Guarding, Rigid, Rebound Neurological: Alert, Oriented, Normal Cognition, Normal Gait, No Motor/Sensory Deficits Psychiatric: Tearful Skin Exam: Warm, Dry, Normal Color Lymphatic: No Adenopathy Course - Vital Signs Last Recorded V/S: Last Vital Signs Temp 36.3 C 03/18/20 23:10 Pulse 90 03/18/20 23:10 Resp 18 03/18/20 23:10 BP 137/85 03/18/20 23:10 Pulse Ox 100 03/18/20 23:10 - Re-Assessments/Exams Free Text/Narrative Re-Assessment/Exam: 03/19/20 00:04 Dr Monroe arrived to [facility] and discussed with pt. Departure - Departure Time of Disposition: 00:04 Disposition: Home, Self-Care 01 Condition: Good Clinical Impression: Threatened - Discharge Information Forms: ED Department Discharge Additional Instructions: 1) rest 2) follow up with Dr Scott tomorrow Sepsis Event Note - Evaluation Sepsis Screening Result: No Definite Risk - Focused Exam Vital Signs: Vital Signs Temp Pulse Resp BP Pulse Ox 03/18/20 23:10 36.3 C 90 18 137/85 100 Date Exam was Performed: 03/19/20 Time Exam was Performed: 00:04
[2020-03-19] MEDS ORDERED: oxyCODONE 5 MG Tab ONE (00:06)
--- NOTE | 2020-03-23 09:25 | PCM.CONS ---
H&P History of Present Illness - General Date of Service: 03/18/20 Admit Problem/Dx: Bleeding during , possible miscarriage Source of Information: Patient - History of Present Illness Initial Comments - Free Text/Narative: Patient presents today to the ER for bleeding. She is about 6 weeks and started spotting yesterday. Around 10 PM, she started having heavier bleeding and is now passing large clots. She does not report passing any tissue like product. She does have severe cramping in her lower abdomen as well. Denies fever, chills, nausea, or vomiting. 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 This is how her other miscarriages have progressed. She required one D and C. Denies lightheadedness, dizziness. Lower Abdominal Pain Score (Numeric/FACES): 7 - Related Data Allergies/Adverse Reactions: Allergies Allergy/AdvReac Type Severity Reaction Status Date / Time adhesive tape Allergy Rash Verified 03/18/20 23:09 Home Medications: Home Meds Pnv No.95/Ferrous Fum/Folic AC [ Multivitamin Tablet] 1 each PO DAILY [History] Past Medical History - Past Health History Medical/Surgical History: Denies Medical/Surgical History HEENT History: Reports: Impaired Vision Cardiovascular History: Reports: None Respiratory History: Reports: None Gastrointestinal History: Reports: None Genitourinary History: Reports: Other (See Below) Other Genitourinary History: abnormal pap with Neg [employer] History: Reports: , Spontaneous Musculoskeletal History: Reports: Back Pain, Chronic Neurological History: Reports: None Psychiatric History: Reports: None Endocrine/Metabolic History: Reports: Other (See Below) Other Endocrine/Metabolic History: hx of diet controlled gestational diabetes with 1st Hematologic History: Reports: None Immunologic History: Reports: None Oncologic (Cancer) History: Reports: None Dermatologic History: Reports: None - Infectious Disease History Infectious Disease History: Reports: Chicken Pox - Past Surgical History Female Surgical History: Reports: Section, D&C Social & Family History - Family History Family Medical History: Noncontributory - Tobacco Use Smoking Status *Q: Never Smoker Second Hand Smoke Exposure: No - Caffeine Use Caffeine Use: Reports: Soda - Recreational Drug Use Recreational Drug Use: No - Living Situation & Occupation Living situation: Reports: with Significant Other Occupation: Employed H&P Review of Systems - Review of Systems: Review Of Systems: See Below General: Denies: Fever, Chills, Weakness, Fatigue HEENT: Denies: Visual Changes Pulmonary: Denies: Shortness of Breath Cardiovascular: Denies: Chest Pain, Lightheadedness Gastrointestinal: Reports: Abdominal Pain. Denies: Nausea, Vomiting Genitourinary: Denies: Dysuria Skin: Denies: Pallor Neurological: Denies: Dizziness, Headache, Numbness Exam - Exam Exam: See Below - Vital Signs Vital Signs: Last Vital Signs Temp 97.4 F 03/18/20 23:10 Pulse 90 03/18/20 23:10 Resp 18 03/18/20 23:10 BP 137/85 03/18/20 23:10 Pulse Ox 100 03/18/20 23:10 Weight: 243 lb - Exam General: Alert, Oriented HEENT: Conjunctiva Clear, Mucosa Moist & [place], Posterior Pharynx Clear Neck: Supple Lungs: Clear to Auscultation, Normal Respiratory Effort Cardiovascular: Regular Rate, Regular Rhythm, Normal S1, Normal S2 GI/Abdominal Exam: Soft, Tender (across lower abdomen). No: No Distention, Guarding, Rigid, Rebound (Female) Exam: Other (Unable to perform with heavy bleeding) Extremities: No Pedal Edema Skin: Warm, Dry Neurological: No: Focal Deficit Sepsis Event Note - Evaluation Sepsis Screening Result: No Definite Risk Consult PN Assessment/Plan Procedures: Procedures ANTEPARTUM MANIPULATION (02/04/19) BLOOD TYPING SEROLOGIC ABO (01/10/18) BLOOD TYPING SEROLOGIC RH(D) (01/10/18) CARE OF MISCARRIAGE (01/10/18) COMPLETE CBC W/AUTO DIFF WBC (01/10/18) COMPREHEN METABOLIC PANEL (01/10/18) EMERGENCY DEPT VISIT (03/18/20) EMERGENCY DEPT VISIT (01/10/18) EMERGENCY DEPT VISIT (01/10/18) EMERGENCY DEPT VISIT (11/01/14) BIOPHYS PROFIL W/O NST (02/04/19) HYDRATE IV INFUSION ADD-ON (01/10/18) OB US LIMITED FETUS(S) (02/04/19) PROTHROMBIN TIME (01/10/18) PT EVAL LOW COMPLEX 20 MIN (06/20/17) RBC ANTIBODY SCREEN (01/10/18) ROUTINE VENIPUNCTURE (01/10/18) THER/PROPH/DIAG INJ IV PUSH (01/10/18) THER/PROPH/DIAG INJ SC/IM (11/01/14) THERAPEUTIC EXERCISES (06/20/17) TX/PRO/DX INJ NEW DRUG ADDON (01/10/18) URINALYSIS AUTO W/SCOPE (11/01/14) URINE TEST (11/01/14) (1) Threatened SNOMED Code(s): 21862094 Code(s): O20.0 - THREATENED (2) Vaginal bleeding during SNOMED Code(s): 06106982498996197 Code(s): O46.90 - ANTEPARTUM HEMORRHAGE, UNSPECIFIED, UNSPECIFIED TRIMESTER Problem List Initiated/Reviewed/Updated: Yes Plan: Vaginal bleeding just began 2 hours ago. Will need to wait and see what happens. Patient was able to show me her pads and bleeding appears appropriate if she is miscarrying. No need for ultrasound currently and since bleeding just started and is heavy, held off on vaginal exam per patient request. Discussed probable diagnosis and expectations over the next 24 hours. Pain medication provided for severe cramping. Otherwise, recommended taking Tylenol and ibuprofen. She is to follow up with Dr. Scott in the morning for a repeat quant. Discussed concerning symptoms/signs that would prompt immediate evaluation in the ER. Requesting Provider: León Reason for Consult: Vaginal bleeding during Patient History Reviewed: Yes Admission H&P Reviewed: Yes Notified Requestor: Yes
== END 2020-03-19 00:23 | disposition home or self-care (01) ==
LOC: DL.ED 22:55
DX: O20.0 Threatened abortion (principal); Z91.048 Other nonmedicinal substance allergy status; Z3A.08 8 weeks gestation of pregnancy
CPT/HCPCS: 99283; A9270-GY

== ENCOUNTER 2020-03-21 22:51 | Emergency (ER) | payer MEDICAID ==
--- NOTE | 2020-03-21 23:20 | EDM.PDOC ---
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 Left Lower Abdominal Pain Score (Numeric/FACES): 8 - Related Data Allergies Allergy/AdvReac Type Severity Reaction Status Date / Time adhesive tape Allergy Rash Verified 03/18/20 23:09 Home Meds: Home Meds Pnv No.95/Ferrous Fum/Folic AC [ Multivitamin Tablet] 1 each PO DAILY [History] Past Medical History - Past Health History Medical/Surgical History: Denies Medical/Surgical History HEENT History: Reports: Impaired Vision Cardiovascular History: Reports: None Respiratory History: Reports: None Gastrointestinal History: Reports: None Genitourinary History: Reports: Other (See Below) Other Genitourinary History: abnormal pap with Neg HPV 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: , 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 Musculoskeletal History: Reports: Back Pain, Chronic Neurological History: Reports: None Psychiatric History: Reports: None Endocrine/Metabolic History: Reports: Other (See Below) Other Endocrine/Metabolic History: hx of diet controlled gestational diabetes with 1st Hematologic History: Reports: None Immunologic History: Reports: None Oncologic (Cancer) History: Reports: None Dermatologic History: Reports: None - Infectious Disease History Infectious Disease History: Reports: Chicken Pox - Past Surgical History Female Surgical History: Reports: Section, D&C Social & Family History - Family History Family Medical History: Noncontributory - Caffeine Use Caffeine Use: Reports: Soda - Living Situation & Occupation Living situation: Reports: with Significant Other Occupation: Employed ED ROS GENERAL - Review of Systems Review Of Systems: Comprehensive ROS is negative, except as noted in HPI. ED EXAM - Physical Exam Exam: See Below Exam Limited By: No Limitations General Appearance: Alert, WD/WN, Mild Distress, Other (discomfort). No: Active Emesis Ears: Hearing Grossly Normal Throat/Mouth: Normal Voice, No Airway Compromise Head: Atraumatic Neck: Non-Tender, Full Range of Motion Respiratory/Chest: No Respiratory Distress Cardiovascular: Regular Rate, Rhythm GI/Abdominal Exam: Tender, Other (left side). No: Distended, Guarding, Rigid, Rebound Neurological: Alert, Oriented, Normal Cognition, Normal Gait, No Motor/Sensory Deficits Psychiatric: Tearful Skin Exam: Warm, Dry, Normal Color Lymphatic: No Adenopathy Course - Vital Signs Last Recorded V/S: Last Vital Signs Temp 36.7 C 03/21/20 23:24 Pulse 74 03/21/20 23:24 Resp 18 03/21/20 23:24 BP 129/79 03/21/20 23:24 Pulse Ox 97 03/21/20 23:24 - Orders/Labs/Meds Orders: Active Orders 24 hr Category Date Time Status Dicyclomine [BentyL] Med 03/22/20 01:46 Once 20 mg IM ONETIME ONE Sodium Chloride 0.9% [Normal Saline] 1,000 ml Med 03/21/20 23:30 Active IV ASDIRECTED Medication Orders Sodium Chloride (Normal Saline) 1,000 mls @ 500 mls/hr IV ASDIRECTED PIYUSH Last Admin: 03/21/20 23:30 Dose: 500 mls/hr Labs: Laboratory Tests 03/21/20 03/21/20 03/21/20 Range/Units 23:27 23:27 23:27 WBC 13.8 H (5.0-10.0) 10^3/uL RBC 5.53 H (4.2-5.4) 10^6/uL Hgb 15.5 (12.0-16.0) g/dL Hct 44.4 (37.0-47.0) % MCV 80.3 (80-100) fL MCH 28.0 (27.0-34.0) pg MCHC 34.9 (33.0-35.0) g/dL Plt Count 375 (150-450) 10^3/uL Neut % (Auto) 68.1 (42.2-75.2) % Lymph % (Auto) 23.4 (20.5-50.1) % [place] % (Auto) 6.8 (2-8) % Eos % (Auto) 1.6 (1.0-3.0) % Baso % (Auto) 0.1 (0.0-1.0) % Sodium 141 (136-145) mmol/L Potassium 3.5 (3.5-5.1) mmol/L Chloride 104 (98-107) mmol/L Carbon Dioxide 27 (21-32) mmol/L Anion Gap 13.5 H (7-13) mEq/L BUN 14 (7-18) mg/dL Creatinine 1.01 (0.55-1.02) mg/dL Est Cr Clr Drug Dosing 90.20 mL/min Estimated GFR (MDRD) > 60 BUN/Creatinine Ratio 13.9 (No establ ref range) Glucose 100 H (74-99) mg/dL Calcium 8.8 (8.5-10.1) mg/dL Total Bilirubin 0.2 (0.2-1.0) mg/dL AST 23 (15-37) U/L ALT 41 (14-59) U/L Alkaline Phosphatase 122 H (46-116) U/L Total Protein 7.6 (6.4-8.2) g/dL Albumin 3.7 (3.4-5.0) g/dL Globulin 3.9 Albumin/Globulin Ratio 0.9 HCG, Quant 201 H (0-6) mIU/mL Urine Color (YELLOW) Urine Appearance (CLEAR) Urine pH (5.0-9.0) Ur Specific [place] (1.005-1.030) Urine Protein (NEGATIVE) Urine Glucose (UA) (NEGATIVE) Urine Ketones (NEGATIVE) Urine Occult Blood (NEGATIVE) Urine Nitrite (NEGATIVE) Urine Bilirubin (NEGATIVE) Urine Urobilinogen (0.2-1.0) mg/dL Ur Leukocyte Esterase (NEGATIVE) Urine RBC /HPF Urine WBC (0-5/HPF) /HPF Ur Epithelial Cells (NOT SEEN) /HPF Amorphous Sediment (NOT SEEN) /HPF Urine Bacteria (0-FEW/HPF) /HPF Urine Mucus (NOT SEEN) /LPF Urine Opiates Screen (NEGATIVE) Ur Oxycodone Screen (NEGATIVE) Urine Methadone Screen (NEGATIVE) Ur Barbiturates Screen (NEGATIVE) U Tricyclic Antidepress (NEGATIVE) Ur Phencyclidine Scrn (NEGATIVE) Ur Amphetamine Screen (NEGATIVE) U Methamphetamines Scrn (NEGATIVE) Urine MDMA Screen (NEGATIVE) U Benzodiazepines Scrn (NEGATIVE) Urine Cocaine Screen (NEGATIVE) U Marijuana (THC) Screen (NEGATIVE) 03/22/20 03/22/20 Range/Units 00:35 00:35 WBC (5.0-10.0) 10^3/uL RBC (4.2-5.4) 10^6/uL Hgb (12.0-16.0) g/dL Hct (37.0-47.0) % MCV (80-100) fL MCH (27.0-34.0) pg MCHC (33.0-35.0) g/dL Plt Count (150-450) 10^3/uL Neut % (Auto) (42.2-75.2) % Lymph % (Auto) (20.5-50.1) % [place] % (Auto) (2-8) % Eos % (Auto) (1.0-3.0) % Baso % (Auto) (0.0-1.0) % Sodium (136-145) mmol/L Potassium (3.5-5.1) mmol/L Chloride (98-107) mmol/L Carbon Dioxide (21-32) mmol/L Anion Gap (7-13) mEq/L BUN (7-18) mg/dL Creatinine (0.55-1.02) mg/dL Est Cr Clr Drug Dosing mL/min Estimated GFR (MDRD) BUN/Creatinine Ratio (No establ ref range) Glucose (74-99) mg/dL Calcium (8.5-10.1) mg/dL Total Bilirubin (0.2-1.0) mg/dL AST (15-37) U/L ALT (14-59) U/L Alkaline Phosphatase (46-116) U/L Total Protein (6.4-8.2) g/dL Albumin (3.4-5.0) g/dL Globulin Albumin/Globulin Ratio HCG, Quant (0-6) mIU/mL Urine Color Dark yellow (YELLOW) Urine Appearance Slightly cloudy (CLEAR) Urine pH 6.0 (5.0-9.0) Ur Specific [place] >= 1.030 (1.005-1.030) Urine Protein Negative (NEGATIVE) Urine Glucose (UA) Negative (NEGATIVE) Urine Ketones Negative (NEGATIVE) Urine Occult Blood Large H (NEGATIVE) Urine Nitrite Negative (NEGATIVE) Urine Bilirubin Negative (NEGATIVE) Urine Urobilinogen 0.2 (0.2-1.0) mg/dL Ur Leukocyte Esterase Negative (NEGATIVE) Urine RBC 75-100 H /HPF Urine WBC 0-5 (0-5/HPF) /HPF Ur Epithelial Cells Few (NOT SEEN) /HPF Amorphous Sediment Few (NOT SEEN) /HPF Urine Bacteria Few (0-FEW/HPF) /HPF Urine Mucus Rare (NOT SEEN) /LPF Urine Opiates Screen Negative (NEGATIVE) Ur Oxycodone Screen Negative (NEGATIVE) Urine Methadone Screen Negative (NEGATIVE) Ur Barbiturates Screen Negative (NEGATIVE) U Tricyclic Antidepress Negative (NEGATIVE) Ur Phencyclidine Scrn Negative (NEGATIVE) Ur Amphetamine Screen Negative (NEGATIVE) U Methamphetamines Scrn Negative (NEGATIVE) Urine MDMA Screen Negative (NEGATIVE) U Benzodiazepines Scrn Negative (NEGATIVE) Urine Cocaine Screen Negative (NEGATIVE) U Marijuana (THC) Screen Positive H (NEGATIVE) Meds: Medications Generic Name Dose Route Start Last Admin Trade Name Freq PRN Reason Stop Dose Admin Sodium Chloride 1,000 mls @ 500 mls/hr 03/21/20 23:30 03/21/20 23:30 Normal Saline IV 500 mls/hr ASDIRECTED [facility] Administration - Re-Assessments/Exams Free Text/Narrative Re-Assessment/Exam: 03/22/20 00:[address] Goel who states will come in to [facility]. Departure - Departure Time of Disposition: 01:46 Disposition: Home, Self-Care 01 Condition: Good Clinical Impression: Constipation by delayed colonic transit Abdominal pain Qualifiers: Abdominal location: left lower quadrant Qualified Code(s): R10.32 - Left lower quadrant pain - Discharge Information Instructions: Constipation, Adult, [id number] Forms: ED Department Discharge Additional Instructions: 1) avoid solid foods next 48 hours 2) have popsicle, jello, prune juice 3) follow up at clinic rx given; bentyl 10mg bid x 12 Sepsis Event Note - Focused Exam Vital Signs: Vital Signs Temp Pulse Resp BP Pulse Ox 03/21/20 23:24 36.7 C 74 18 129/79 97 Date Exam was Performed: 03/22/20 Time Exam was Performed: 01:46 - My Orders Last 24 Hours: My Active Orders 03/21/20 23:30 Sodium Chloride 0.9% [Normal Saline] 1,000 ml IV ASDIRECTED 03/22/20 01:46 Dicyclomine [BentyL] 20 mg IM ONETIME ONE - Assessment/Plan Last 24 Hours: My Active Orders 03/21/20 23:30 Sodium Chloride 0.9% [Normal Saline] 1,000 ml IV ASDIRECTED 03/22/20 01:46 Dicyclomine [BentyL] 20 mg IM ONETIME ONE
[2020-03-21] MEDS ORDERED: Sodium Chloride 0.9% 1,000 ML IV SCH (23:30)
[2020-03-21 23:57] LABS: ANION GAP 13.5 mEq/L (7-13); CHLORIDE,CL 104 mmol/L (98-107); SODIUM,NA 141 mmol/L (136-145)
[2020-03-22] MEDS ORDERED: Dicyclomine 20 MG/2 ML SDV IM ONE (01:46)
--- NOTE | 2020-03-22 07:53 | CONS ---
SERVICE DATE: REASON FOR CONSULTATION: Evaluation of miscarriage with bleeding and pain, concern for potential need of D and C. HISTORY OF PRESENT ILLNESS: A 29-year-old female presents to the emergency department with a complaint of heavy vaginal bleeding and right-sided pain with concern of retained products of conception. No fevers, foul-smelling drainage or discharge. Reports that the bleeding has been heavy ever since the miscarriage was diagnosed last Sunday and at one point she was even passing clots. Not passing clots at this time, but still having a lot of pain on her right side. Previous quantitative hCG 4100, today's quantitative hCG 201. No ultrasound has been performed. Last menstrual period dating would put her at approximately 6 weeks gestation at the time of the miscarriage. She denies any dysuria, frequency, urgency or constipation pain. Reports she had a large bowel movement this morning that was normal, passed easily without complication. No nausea, vomiting, or other organ site-specific symptoms reported. Past medical: 3 prior miscarriages. Surgical, and social history: Non-contributory. REVIEW OF SYSTEMS: Pertinent positives and negatives as outlined above. Nurse did report to me that when she first presented, the patient reported pain more in the epigastric region radiating over to the upper left quadrant. OBJECTIVE: Vital Signs: Temp 98.1, Pulse 74, BP 129/79, Resp 18, O2 sat 97%. HEENT: Unremarkable. Heart: Regular without murmur. Lungs: Clear bilaterally. Abdomen: Soft. Some tenderness on the left-hand side. Bowel sounds normoactive. CVA tenderness positive on the left. Genitourinary: A small amount of dark red blood is present in the vagina. Cervix visualized in its entirety and open. I was able to easily pass a long curved [place] into the opening of the cervix and no tissue, clot, or other products were felt nor needed to be removed. The patient reported a cramping- type pain that she had experienced before but different than the left-sided pain that she is complaining of currently. No foul-smelling drainage or discharge. Bimanual exam is limited by the patient's obese body habitus, but uterus palpates overall normal size and firm, non-tender. Extremities: No edema, erythema, or tenderness. Some superficial bruising noted on her right knee. Psychiatric: The patient is appropriate, oriented; answers questions well. LAB: The patient's urinalysis was negative other than a large amount of blood. RBCs 75-100, WBC 0-5. Chemistries with some minor abnormalities, no red flags. CBC; mild elevation of the white blood cell count 13.8, hemoglobin stable at 15.5, platelet count normal 375. ASSESSMENT: Left-sided pain, suspect constipation. Recent SAB with mild residual bleeding. PLAN: Discussed case with the ER provider. Reassured that the findings are not consistent with miscarriage requiring D and C nor ectopic . Pain is more in the left middle and upper quadrants of the abdomen, more consistent with constipation or some other possible gastrointestinal etiology, and KUB was ordered. Pending x-ray results may decide if ultrasound is necessary or not. Consider offering a Cytotec or Pitocin to help with any further contraction of the uterus and passage of any remaining clots or possible products that she may have. Since she was only 6 weeks along, doubt that D and C would become necessary. MODL /[id number]
== END 2020-03-22 02:01 | disposition home or self-care (01) ==
LOC: DL.ED 22:51
DX: K59.01 Slow transit constipation (principal); Z91.048 Other nonmedicinal substance allergy status
CPT/HCPCS: 36415; 74018; 80053; 80305; 81001; 84702; 85025; 96372; 99284; J0500; J7030

== ENCOUNTER 2022-05-26 02:38 | Inpatient (IN) | payer MEDICAID ==
[2022-05-26] MEDS: Lactated Ringers 1,000 ML IV SCH ×3 (03:06→16:01)
[2022-05-26] MEDS ORDERED: Tranexamic Acid 1,000 MG in Sodium Chloride 0.9% 100 ML IV PRN (03:18)
[2022-05-26] MEDS ORDERED: ceFAZolin 2 GM in Premix Bag 1 BAG IV ONE (03:18)
[2022-05-26] MEDS ORDERED: Citric Acid/Sodium Citrate Solution 30 ML Cup PO ONE (03:18)
[2022-05-26] MEDS ORDERED: Carboprost Tromethamine 250 MCG/1 ML Amp IM PRN (03:18)
[2022-05-26] MEDS ORDERED: Oxytocin 10 Units/1 ML SDV IM PRN (03:18)
[2022-05-26] MEDS ORDERED: Sodium Chloride 0.9% 10 ML Syringe FLUSH PRN (03:18)
[2022-05-26] MEDS ORDERED: Methylergonovine 0.2 MG Tab PO PRN (03:18)
[2022-05-26] MEDS ORDERED: Citric Acid/Sodium Citrate Solution 30 ML Cup ONE (03:21)
[2022-05-26] MEDS ORDERED: Oxytocin/Normal Saline 30 UNIT/500 ML BAG IV SCH (03:30)
[2022-05-26] MEDS ORDERED: Lactated Ringers 1,000 ML IV SCH ×3 (03:30→05:45)
[2022-05-26] MEDS ORDERED: Oxytocin/Normal Saline 30 UNIT/500 ML BAG ONE (03:38)
[2022-05-26] MEDS ORDERED: Metoclopramide 10 MG/2 ML SDV IV ONE (03:45)
[2022-05-26] MEDS ORDERED: Glycopyrrolate 0.2 MG/ML 2 ML SDV IV ONE (03:45)
[2022-05-26] MEDS ORDERED: Lactated Ringers 1,000 ML IV ONE (03:45)
[2022-05-26] MEDS ORDERED: Ketorolac 30 MG/ML SDV IVPUSH ONE (03:45)
[2022-05-26] MEDS ORDERED: Ondansetron 4 MG/2 ML SDV IV ONE (03:45)
[2022-05-26] MEDS ORDERED: Morphine PF 1 MG/ML Amp ONE (03:45)
[2022-05-26] MEDS ORDERED: Dexamethasone 4 MG/ML SDV IV ONE (03:45)
[2022-05-26] MEDS ORDERED: Ondansetron 4 MG/2 ML SDV IVPUSH PRN (05:44)
[2022-05-26] MEDS ORDERED: Acetaminophen 325 MG Tab PO PRN (05:44)
[2022-05-26] MEDS ORDERED: Methylergonovine 0.2 MG/1 ML Amp IM PRN (05:44)
[2022-05-26] MEDS ORDERED: ePHEDrine 50 MG/ML SDV IVPUSH PRN (05:44)
[2022-05-26] MEDS ORDERED: Naloxone 2 MG/2 ML Syringe IVPUSH PRN (05:44)
[2022-05-26] MEDS ORDERED: Misoprostol 400 MCG (4 X 100 MCG TAB) RECTAL PRN (05:44)
[2022-05-26] MEDS ORDERED: diphenhydrAMINE 50 MG/ML SDV IVPUSH PRN (05:44)
[2022-05-26] MEDS ORDERED: Acetaminophen/oxyCODONE 325-5 MG Tab PO PRN (05:44)
[2022-05-26] MEDS ORDERED: Ketorolac 30 MG/ML SDV IVPUSH SCH (06:00)
[2022-05-26] MEDS: Prenatal Multivitamin with Calcium/Folic Acid/Iron Tab PO SCH (11:05)
[2022-05-26] MEDS: Simethicone 80 MG Tab.Chew PO SCH ×3 (11:05→18:04)
[2022-05-26] MEDS: Ketorolac 30 MG/ML SDV IVPUSH SCH ×2 (11:06→18:05)
[2022-05-26] MEDS: Sodium Chloride 0.9% 10 ML Syringe FLUSH SCH (11:10)
[2022-05-26] MEDS ORDERED: Oxytocin/Normal Saline 30 UNIT/500 ML BAG IV ONE (14:53)
[2022-05-27] MEDS: Ketorolac 30 MG/ML SDV IVPUSH SCH (00:39)
[2022-05-27] MEDS: Docusate Sodium 100 MG Cap PO PRN ×2 (00:48→11:03)
[2022-05-27] MEDS: Simethicone 80 MG Tab.Chew PO SCH ×4 (00:49→16:45)
[2022-05-27] MEDS: Sodium Chloride 0.9% 10 ML Syringe FLUSH SCH ×2 (03:07→16:45)
[2022-05-27] MEDS: Acetaminophen/oxyCODONE 325-5 MG Tab PO PRN ×3 (04:49→20:30)
[2022-05-27] MEDS: Ibuprofen 800 MG Tab PO PRN ×2 (11:00→20:22)
[2022-05-27] MEDS: Prenatal Multivitamin with Calcium/Folic Acid/Iron Tab PO SCH (11:03)
[2022-05-27] MEDS ORDERED: Witch Hazel Medicated Pads 100/Jar TOP PRN (15:56)
[2022-05-28] MEDS: Simethicone 80 MG Tab.Chew PO SCH ×5 (00:28→21:04)
[2022-05-28] MEDS: Docusate Sodium 100 MG Cap PO PRN ×3 (00:29→21:03)
[2022-05-28] MEDS: Acetaminophen/oxyCODONE 325-5 MG Tab PO PRN ×4 (00:33→18:55)
[2022-05-28] MEDS: Prenatal Multivitamin with Calcium/Folic Acid/Iron Tab PO SCH (08:44)
[2022-05-28] MEDS: Ibuprofen 800 MG Tab PO PRN ×2 (08:45→21:03)
[2022-05-28] MEDS: Sodium Chloride 0.9% 10 ML Syringe FLUSH SCH ×3 (12:57→22:35)
[2022-05-29] MEDS: Acetaminophen/oxyCODONE 325-5 MG Tab PO PRN ×2 (03:09→07:58)
[2022-05-29] MEDS: Docusate Sodium 100 MG Cap PO PRN (07:57)
[2022-05-29] MEDS: Prenatal Multivitamin with Calcium/Folic Acid/Iron Tab PO SCH (08:00)
[2022-05-29] MEDS: Simethicone 80 MG Tab.Chew PO SCH (08:01)
== END 2022-05-29 12:30 | disposition home or self-care (01) | DRG 788 ==
LOC: DL.OBCHECK 02:38 → DL.OB 03:19
PROVIDERS: ADMIT Family Medicine; ATTEND Family Medicine
PROC: 10D00Z1 Extraction of Products of Conception, Low, Open Approach (ICD-10-PCS; principal; 2022-05-26)
DX: O99.814 Abnormal glucose complicating childbirth (principal); Z3A.37 37 weeks gestation of pregnancy; Z37.0 Single live birth; Z20.822 Contact with and (suspected) exposure to COVID-19; O34.211 Maternal care for low transverse scar from previous cesarean delivery
CPT/HCPCS: 01961; 36415; 51702; 85027; 86592; 86850; 86900; 86901; A9270-GY; J0690; J1100; J1885; J2274; J2405; J2590; J2765; J3490; J7120; U0002

== ENCOUNTER 2023-05-28 23:19 | Emergency (ER) | payer SELFPAY ==
[2023-05-28] MEDS: Sodium Chloride 0.9% 10 ML Syringe FLUSH PRN (23:57)
[2023-05-29 00:04] LABS: BASOPHILS PERCENT AUTO 0.2 % (0.0-1.0); EOSINOPHILS PERCENT AUTO 2.4 % (1.0-3.0); HEMATOCRIT 42.2 % (37.0-47.0); HEMOGLOBIN 14.3 g/dL (12.0-16.0); LYMPHOCYTES PERCENT AUTO 21.8 % (20.5-50.1); MEAN CORPUSCULAR HEMOGLOBIN 28.2 pg (27.0-34.0); MEAN CORPUSCULAR HGB CONC 33.9 g/dL (33.0-35.0); MEAN CORPUSCULAR VOLUME 83.2 fL (80-100); NEUTROPHILS PERCENT AUTO 69.6 % (42.2-75.2); PLATELET COUNT,PLT 368 10^3/uL (150-450); RED BLOOD CELL COUNT 5.07 10^6/uL (4.2-5.4); WHITE BLOOD CELL COUNT,WBC 9.2 10^3/uL (5.0-10.0)
[2023-05-29 00:23] LABS: INR 0.9 (0.9-1.2); PROTHROMBIN TIME 9.2 SEC (9.0-12.0); PTT,PARTIAL THROMBOPLSTIN TIME 28.5 SEC (22.0-34.0)
[2023-05-29 00:24] LABS: A/G RATIO 0.9; ALANINE AMINOTRANSFERASE,ALT 36 U/L (14-59); ALBUMIN 3.5 g/dL (3.4-5.0); ALKALINE PHOSPHATASE 99 U/L (46-116); ANION GAP 13.3 mEq/L (7-13); ASPARTATE AMNIOTRANSFERASE,AST 22 U/L (15-37); BILIRUBIN TOTAL 0.2 mg/dL (0.2-1.0); BLOOD UREA NITROGEN,BUN 19 mg/dL (7-18); BUN/CREATININE RATIO 20.9 (No establ ref range); C-REACTIVE PROTEIN 1.3 mg/dL (0.0-0.9); CALCIUM 8.6 mg/dL (8.5-10.1); CARBON DIOXIDE,CO2 26 mmol/L (21-32); CHLORIDE,CL 107 mmol/L (98-107); CREATININE 0.91 mg/dL (0.55-1.02); EST CRCL DRUG DOSING (CG) 91.04 mL/min; GLUCOSE RANDOM 94 mg/dL (70-99); POTASSIUM,K 4.3 mmol/L (3.5-5.1); PROTEIN TOTAL,TP 7.4 g/dL (6.4-8.2); SODIUM,NA 142 mmol/L (136-145)
[2023-05-29 00:27] LABS: ESTIMATED GFR 85 mL/min (>=60); LACTIC ACID 1.1 mmol/L (0.4-2.0)
[2023-05-29 00:29] LABS: HCG QUALITATIVE,SERUM NEGATIVE (NEGATIVE)
[2023-05-29] MEDS: Sodium Chloride 0.9% 1,000 ML IV ONE (01:28)
[2023-05-29] MEDS: Ondansetron 4 MG/2 ML SDV IVPUSH ONE (01:49)
[2023-05-29] MEDS: Ketorolac 30 MG/ML SDV IVPUSH ONE (01:49)
[2023-05-29] MEDS: Take Home: Cyclobenzaprine 10 MG Tab, 4 Tab Pack PO ONE (01:59)
[2023-05-29] MEDS: Take Home: Ondansetron 4 MG Tab.DIS, 5 Tab Pack PO ONE (01:59)
== END 2023-05-29 02:10 | disposition home or self-care (01) ==
LOC: DL.ED 23:19
DX: G44.209 Tension-type headache, unspecified, not intractable (principal); Z91.048 Other nonmedicinal substance allergy status
CPT/HCPCS: 36415; 70450; 80053; 83605; 84703; 85025; 85610; 85730; 86140; 96374; 96375; 99284; 99284-25; A9270-GY; J1885; J2405; J3360; J3490; J7030; Q0162

== ENCOUNTER 2024-04-17 11:42 | Inpatient (IN) | payer MEDICAID ==
[2024-04-17] MEDS ORDERED: Carboprost Tromethamine 250 MCG/1 ML Amp IM PRN (11:56)
[2024-04-17] MEDS ORDERED: Tranexamic Acid 1,000 MG in Sodium Chloride 0.9% 100 ML IV PRN ×2 (11:56→13:52)
[2024-04-17] MEDS ORDERED: Oxytocin 10 Units/1 ML SDV IM PRN (11:56)
[2024-04-17] MEDS ORDERED: Methylergonovine 0.2 MG Tab PO PRN (11:56)
[2024-04-17] MEDS ORDERED: Sodium Chloride 0.9% 10 ML Syringe FLUSH PRN (11:56)
[2024-04-17] MEDS ORDERED: Lactated Ringers 1,000 ML IV SCH ×2 (12:00)
[2024-04-17] MEDS ORDERED: Succinylcholine 200 MG/10 ML MDV ONE (12:04)
[2024-04-17] MEDS ORDERED: ceFAZolin 2 GM Vial ONE (12:04)
[2024-04-17] MEDS ORDERED: Oxytocin/Normal Saline 30 UNIT/500 ML BAG ONE (12:07)
[2024-04-17] MEDS ORDERED: Ondansetron 4 MG/2 ML SDV ONE (12:08)
[2024-04-17] MEDS ORDERED: Dexamethasone 4 MG/ML SDV ONE (12:08)
[2024-04-17] MEDS ORDERED: Oxytocin 10 Units/1 ML SDV ONE (12:08)
[2024-04-17] MEDS ORDERED: Ketorolac 30 MG/ML SDV ONE (12:08)
[2024-04-17] MEDS ORDERED: Tranexamic Acid 1,000 MG/10 ML Vial ONE (12:48)
[2024-04-17] MEDS: Oxytocin/Normal Saline 30 UNIT/500 ML BAG IV SCH (13:50)
[2024-04-17] MEDS ORDERED: Methylergonovine 0.2 MG/1 ML Amp IM PRN (13:52)
[2024-04-17] MEDS ORDERED: Acetaminophen 325 MG Tab PO PRN (13:52)
[2024-04-17] MEDS ORDERED: ePHEDrine 50 MG/ML SDV IVPUSH PRN (13:52)
[2024-04-17] MEDS ORDERED: Naloxone 2 MG/2 ML Syringe IVPUSH PRN (13:52)
[2024-04-17] MEDS ORDERED: diphenhydrAMINE 50 MG/ML SDV IVPUSH PRN (13:52)
[2024-04-17] MEDS ORDERED: Ketorolac 30 MG/ML SDV IVPUSH SCH (14:00)
[2024-04-17] MEDS ORDERED: Ibuprofen 800 MG Tab PO SCH (14:00)
[2024-04-17] MEDS: Lactated Ringers 1,000 ML IV SCH (14:08)
[2024-04-17] MEDS: Ketorolac 30 MG/ML SDV IVPUSH SCH (19:29)
[2024-04-17] MEDS: Misoprostol 400 MCG (4 X 100 MCG TAB) RECTAL ONE (19:34)
[2024-04-17] MEDS: Simethicone 80 MG Tab.Chew PO SCH (19:34)
[2024-04-17] MEDS: ceFAZolin 2 GM Vial IVPUSH ONE (19:34)
[2024-04-17] MEDS: Docusate Sodium 100 MG Cap PO PRN (21:54)
[2024-04-17] MEDS: Sodium Chloride 0.9% 10 ML Syringe FLUSH SCH (23:38)
[2024-04-18] MEDS: Ondansetron 4 MG/2 ML SDV IVPUSH PRN (06:23)
[2024-04-18 06:37] LABS: HEMATOCRIT 32.3 % (37.0-47.0); HEMOGLOBIN 10.6 g/dL (12.0-16.0); MEAN CORPUSCULAR HEMOGLOBIN 25.8 pg (27.0-34.0); MEAN CORPUSCULAR HGB CONC 32.8 g/dL (33.0-35.0); MEAN CORPUSCULAR VOLUME 78.6 fL (80-100); RED BLOOD CELL COUNT 4.11 10^6/uL (4.2-5.4); WHITE BLOOD CELL COUNT,WBC 13.6 10^3/uL (5.0-10.0)
[2024-04-18] MEDS: Acetaminophen/oxyCODONE 325-5 MG Tab PO PRN ×2 (09:04→13:50)
[2024-04-18] MEDS: Prenatal Multivitamin with Calcium/Folic Acid/Iron Tab PO SCH (09:04)
[2024-04-18] MEDS: Ibuprofen 800 MG Tab PO SCH (13:50)
[2024-04-18] MEDS: Calcium Carbonate 500 MG Tab.Chew PO ONE (19:16)
[2024-04-19] MEDS ORDERED: Morphine PF 10 MG/10 ML SDV EPIDUR ONE (12:59)
[2024-04-19] MEDS ORDERED: Phenylephrine 1% 10 MG/ML SDV IV ONE (12:59)
[2024-04-19] MEDS ORDERED: Midazolam 1 MG/ML 2 ML SDV IV ONE (12:59)
[2024-04-19] MEDS ORDERED: Ketorolac 30 MG/ML SDV IVPUSH ONE (12:59)
[2024-04-19] MEDS ORDERED: Ondansetron 4 MG/2 ML SDV IV ONE (12:59)
[2024-04-19] MEDS ORDERED: Dexamethasone 4 MG/ML SDV IV ONE (12:59)
[2024-04-19] MEDS ORDERED: Ropivacaine 100 ML EPIDUR ONE (12:59)
== END 2024-04-19 13:00 | disposition home or self-care (01) | DRG 788 ==
LOC: DL.OBCHECK 11:42 → DL.OB 11:56 → OBSVTOIN 12:59 → DL.MS 04-18 19:00
PROVIDERS: ADMIT Family Medicine; ATTEND Family Medicine
PROC: 10D00Z1 Extraction of Products of Conception, Low, Open Approach (ICD-10-PCS; principal; 2024-04-17 12:00)
DX: O42.013 Preterm premature rupture of membranes, onset of labor within 24 hours of rupture, third trimester (principal); O30.043 Twin pregnancy, dichorionic/diamniotic, third trimester; O24.425 Gestational diabetes mellitus in childbirth, controlled by oral hypoglycemic drugs; O34.211 Maternal care for low transverse scar from previous cesarean delivery; Z3A.36 36 weeks gestation of pregnancy; Z37.2 Twins, both liveborn; Z91.048 Other nonmedicinal substance allergy status
CPT/HCPCS: 01961; 36415; 85025; 85027; 86850; 86900; 86901; 94010; A9270-GY; J0330; J1100; J1885; J2250; J2270; J2371; J2405; J2590; J2795; J7120